=== PATIENT | male | born 1995 | race Caucasian/White ===

== ENCOUNTER 2018-08-16 16:49 | Emergency (ER) | payer OTHER ==
[~2018-08-16] VITALS: Ht 172.7 cm; Wt 59.0 kg
[2018-08-16] MEDS ORDERED: NOHOMEMEDICATIONS (17:00)
[2018-08-16] MEDS ORDERED: NABUMETONE 750750 M1 PO (18:21)
[2018-08-16 18:49] VITALS: BP 110/66
== END 2018-08-16 18:49 | disposition home or self-care (01) ==
LOC: M.ERS 16:49
DX: S66.922A Laceration of unspecified muscle, fascia and tendon at wrist and hand level, left hand, initial encounter (principal); W26.0XXA Contact with knife, initial encounter; Y93.89 Activity, other specified; Y92.89 Other specified places as the place of occurrence of the external cause; Y99.8 Other external cause status